=== PATIENT | male | born 1940 | race African-American/Black ===

== ENCOUNTER → 2019-02-04 | Outpatient (CLI) | payer MEDICARE, OTHER ==
[2019-02-04 11:22] LABS: African American GFR (CKD) >90 (>60 ml/min/1.73 sqM); Blood Urea Nitrogen 10 mg/dL (9-20)
--- NOTE | 2019-02-04 12:59 | CT ---
EXAMINATION TYPE: CT ChestAbdPelvis w con DATE OF EXAM: 02/04/2019 COMPARISON: 02/10/2014 HISTORY: Malignant carcinoid tumors of other sites CT DLP: 1108 mGycm CONTRAST: CT scan of the chest, abdomen and pelvis is performed with Oral Contrast and with IV Contrast, patien t injected with 100 mL of Isovue 300. CT Chest: LUNGS: Multiple bilateral pleural-based and nonpleural based pulmonary nodules seen too numerous to c ount. The largest nodule is seen in right upper lobe medially and is pleural-based measuring 1.4 cm. Most nodules measure less than 1 cm. On the left the largest nodule is seen within the left upper lob e and measures approximately 1.2 cm. No evidence of pleural effusion or volume loss. MEDIASTINUM: Thoracic aorta is of normal caliber. The heart is not enlarged. No evidence for media stinal mass or adenopathy. HILAR STRUCTURES: No evidence for mass. No hilar adenopathy is appreciated. OTHER: No significant abnormality. CONTRAST CT ABDOMEN AND PELVIS FINDINGS: LIVER/GB: Multiple hepatic masses noted with internal calcifications seen. Mass within the lateral se gment left hepatic lobe measures 3.8 cm in maximal dimension. Mass anterior segment right hepatic lob e measures 5.2 cm. Mass medial segment left hepatic lobe measures 4.6 cm. Additional smaller masses n oted. Findings compatible with metastatic disease. PANCREAS: No inflammation. No distinct mass. SPLEEN: No splenic enlargement. No lesion seen. ADRENALS: No nodule. No thickening. KIDNEYS/BLADDER: No hydronephrosis. No nephrolithiasis. No disctinct renal mass. BOWEL: Is wall thickening and focal calcification in the region of the terminal ileum which may refle ct site of carcinoid. GENITAL ORGANS: Markedly enlarged prostate gland measuring 8.9 x 7.4 x 6.5 cm. LYMPH NODES: No greater than 1cm abdominal or pelvic lymph nodes are appreciated. AORTA: Occlusion right common iliac artery. Atheromatous change of the abdominal aorta without aneury sm. OSSEOUS STRUCTURES: Small mixed lytic and blastic lesions throughout the axial and appendicular skele ton including the sternum and pelvis. Mild superior endplate loss of height of T8 T10-T12. OTHER: No significant additional abnormality is seen. IMPRESSION: 1. Findings compatible with metastatic disease to the chest, liver and osseous structures. As noted t here is wall thickening as well as focal calcification in the region of the terminal ileum and adjace nt cecum which may reflect carcinoid tumor. Correlate clinically.
== END | disposition home or self-care (01) ==
LOC: RADCTMAIN 09:45
PROVIDERS: ATTEND Internal Medicine Hematology & Oncology
DX: C7A.098 Malignant carcinoid tumors of other sites (principal); R93.89 Abnormal findings on diagnostic imaging of other specified body structures; Z88.0 Allergy status to penicillin
CPT/HCPCS: 82565; 84520; 71260; 74177; 36415; Q9967